=== PATIENT | male | born 1990 | race Native Hawaiian/Other Pacific Islander ===

== ENCOUNTER 2018-01-29 13:14 | Emergency (ER) | payer OTHER ==
[2018-01-29 13:22] VITALS: BP 144/96; PULSE 101; RESP 16; TEMP 97.5; O2SAT 99
[2018-01-29] MEDS ORDERED: Tdap Vaccine 0.5 ml Vial (10-64 yrs) IM ONE ×2 (13:27→14:11)
--- NOTE | 2018-01-29 13:54 | ED PDOC ---
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 No active bleeding, numbness, or tingling. Tetanus not up to date. PMD: out of area Past Medical History Reviewed: Historical Data, Nursing Documentation, Vital Signs Vital Signs: Last Vital Signs Temp 97.5 F L 01/29/18 13:18 Pulse 101 H 01/29/18 13:18 Resp 16 01/29/18 13:18 BP 144/96 H 01/29/18 13:18 Pulse Ox 99 01/29/18 13:18 - Medical History PMH: No Chronic Diseases - Surgical History Surgical History: No Surg Hx - Family History Family History: States: Unknown Family Hx - Allergies Allergies/Adverse Reactions: Allergies Allergy/AdvReac Type Severity Reaction Status Date / Time No Known Allergies Allergy Verified 01/29/18 13:18 Review of Systems ROS Statement: Except As Marked, All Systems Reviewed And Found Negative Skin: Positive for: Other (laceration to left hand) Neurological: Negative for: Numbness, Other (tingling) Physical Exam - Reviewed Nursing Documentation Reviewed: Yes Vital Signs Reviewed: Yes - Physical Exam Appears: Positive for: No Acute Distress Head Exam: Positive for: ATRAUMATIC Skin: Positive for: Normal Color (1 cm linear superficial laceration to left hand, no active bleeding) Eye Exam: Positive for: Normal appearance ENT: Positive for: Normal ENT Inspection Neck: Positive for: Normal Cardiovascular/Chest: Negative for: Bradycardia, Tachycardia Respiratory: Negative for: Accessory Muscle Use, Respiratory Distress Extremity: Positive for: Normal ROM (of left hand and wrist), Swelling - ECG O2 Sat by Pulse Oximetry: 99 (RA) Pulse Ox Interpretation: Normal Medical Decision Making Medical Decision Making: Time: 1327 Initial Impression: laceration to left hand Initial Plan: --Tetanus booster --Wound irrigated and dressed, but secondary to superficial nature of wound. Scribe Attestation: Documented by Toyin Durand, acting as a scribe for Jamila Valenzuela PA-C Provider Scribe Attestation: All medical record entries made by the Scribe were at my direction and personally dictated by me. I have reviewed the chart and agree that the record accurately reflects my personal performance of the history, physical exam, medical decision making, and the department course for this patient. I have also personally directed, reviewed, and agree with the discharge instructions and disposition. Disposition - Clinical Impression Clinical Impression: Tetanus-diphtheria vaccination administered at current visit, Laceration - Disposition Disposition: Routine/Home Disposition Time: 14:14 Condition: GOOD Instructions: Wound Care Forms: [employer] ([place]ian)
== END 2018-01-29 14:18 | disposition home or self-care (01) ==
LOC: H.ER 13:14
DX: S61.412A Laceration without foreign body of left hand, initial encounter (principal); W26.8XXA Contact with other sharp object(s), not elsewhere classified, initial encounter; Y92.89 Other specified places as the place of occurrence of the external cause